=== PATIENT | female | born 1960 | race Caucasian/White ===

== ENCOUNTER → 2025-07-10 10:45 | Outpatient (REF) | payer OTHER, SELFPAY | LOC: RCS 10:45 | PROVIDERS: ATTENDING PHYSICIAN Physician Assistant | DX: R06.09 Other forms of dyspnea (principal); Z82.49 Family history of ischemic heart disease and other diseases of the circulatory system; R07.89 Other chest pain | CPT/HCPCS: 93017 ==

== ENCOUNTER → 2025-07-14 16:05 | Outpatient (REF) | payer OTHER, SELFPAY | LOC: RCS 16:05 | PROVIDERS: ATTENDING PHYSICIAN Physician Assistant | DX: R06.09 Other forms of dyspnea (principal); R07.89 Other chest pain; Z82.49 Family history of ischemic heart disease and other diseases of the circulatory system | CPT/HCPCS: 93306 ==

== ENCOUNTER → 2025-09-08 | Outpatient (REF) | payer OTHER, SELFPAY | LOC: DHSLP | PROVIDERS: ATTENDING PHYSICIAN Physician Assistant | DX: G47.33 Obstructive sleep apnea (adult) (pediatric) (principal) | CPT/HCPCS: 95800 ==